=== PATIENT | female | born 1995 | race American Indian/Alaskan Native ===

== ENCOUNTER 2018-04-15 00:54 | Inpatient (IN) | payer MEDICAID ==
[2018-04-15 01:08] VITALS: BMI 28.1
[2018-04-15] MEDS ORDERED: Sodium Chloride 0.9% 1,000 ML IV STA (01:56)
[2018-04-15] MEDS ORDERED: Insulin Regular 1 UNITS/0.01 ML ML SC STA (01:56)
--- NOTE | 2018-04-15 01:59 | ED PDOC ---
Arrival/HPI - General Chief Complaint: Dizziness/Lightheaded Time Seen by Provider: 04/15/18 01:04 Historian: Patient - History of Present Illness Narrative History of Present Illness (Text): 04/15/18 01:56 22 year old female, whose past medical history includes hypertension and IDDM, presents to the emergency department with complaint of dizziness. Patient states she noticed her blood sugar was elevated. Patient informs of noncompliance with medications. Patient states she doesn't have money to pay for medications. Patient states she is suppose to take insulin and Lisinopril. Patient denies any shortness of breath, fevers, chills, or any other complaints. Time/Duration: Prior to Arrival Symptom Course: Unchanged Past Medical History - Provider Review Nursing Documentation Reviewed: Yes - Cardiac Hx Cardiac Disorders: Yes Hx Hypertension: Yes - Pulmonary Hx Respiratory Disorders: Yes Hx Asthma: Yes - Endocrine/Metabolic Hx Endocrine Disorders: Yes Hx Diabetes Mellitus Type 2: Yes - Psychiatric Hx Substance Use: No Family/Social History - Physician Review Nursing Documentation Reviewed: Yes Family/Social History: No Known Family HX Smoking Status: Never Smoked Hx Alcohol Use: No Hx Substance Use: No Allergies/Home Meds Allergies/Adverse Reactions: Allergies Iodinated Contrast- Oral and IV Dye Allergy (Verified 04/15/18 01:08) ANAPHYLAXIS peanut Allergy (Verified 04/15/18 01:08) ANAPHYLAXIS shellfish derived Allergy (Verified 04/15/18 01:08) ANAPHYLAXIS Home Medications: Home Meds Medication Instructions Recorded Confirmed Insulin Glargine, Recombina 20 unit SC HS 04/15/18 04/15/18 [Lantus] Insulin Human Regular [Novolin R] 7 unit SC AC 04/15/18 04/15/18 Review of Systems - Physician Review All systems were reviewed & negative as marked: Yes - Review of Systems Constitutional: absent: Fevers, Night Sweats Respiratory: absent: SOB Cardiovascular: Chest Pain Neurological: Dizziness Physical Exam Vital Signs Reviewed: Yes Vital Signs Temp Pulse Resp BP Pulse Ox 04/15/18 01:08 98.3 F 92 H 18 128/76 100 Temperature: Afebrile Blood Pressure: Normal Pulse: Regular Respiratory Rate: Normal Appearance: Positive for: Well-Appearing, Non-Toxic, Comfortable Pain Distress: None Mental Status: Positive for: Alert and Oriented X 3 Finger Stick Blood Glucose: 456 - Systems Exam Head: Present: Atraumatic, Normocephalic Pupils: Present: PERRL Extroacular Muscles: Present: EOMI Conjunctiva: Present: Normal Mouth: Present: Moist Mucous Membranes Neck: Present: Normal Range of Motion Respiratory/Chest: Present: Clear to Auscultation, Good Air Exchange. No: Respiratory Distress, Accessory Muscle Use Cardiovascular: Present: Regular Rate and Rhythm, Normal S1, S2. No: Murmurs Abdomen: No: Tenderness, Distention, Peritoneal Signs Back: Present: Normal Inspection Upper Extremity: Present: Normal Inspection. No: Cyanosis, Edema Lower Extremity: Present: Normal Inspection. No: Edema Neurological: Present: Speech Normal Skin: Present: Warm, Dry, Normal Color. No: Rashes Psychiatric: Present: Alert, Oriented x 3, Normal Insight, Normal Concentration Medical Decision Making ED Course and Treatment: 04/15/18 02:00 Impression: 22 year old female presents with chest pain and dizziness, status post noncompliance of diabetes and hypertension medications. Plan: -- EKG -- Chest X-ray -- Labs -- Insulin -- Reassess and disposition Prior Visits: Notes and results from previous visits were reviewed. Progress Notes: 04/15/18 02:48 EKG: Ordered, reviewed, and independently interpreted the EKG. Rate :101 BPM Rhythm : Tachycardia Interpretation : Nonspecific T- wave changes. 04/15/18 02:48 Chest X-ray reviewed, shows: No acute process. 04/15/18 04:51 Case discussed with medical office administrator and Dr. Winn, patient will be admitted for observation and control of her blood sugar. Patient will then also be given social worker masters consultation. - RAD Interpretation Radiology Orders: 04/15/18 01:50 CHEST PORTABLE [RAD] Stat - Scribe Statement The provider has reviewed the documentation as recorded by the Nicole Cruz Provider Scribe Attestation: All medical record entries made by the Scribe were at my direction and personally dictated by me. I have reviewed the chart and agree that the record accurately reflects my personal performance of the history, physical exam, medical decision making, and the department course for this patient. I have also personally directed, reviewed, and agree with the discharge instructions and disposition. Disposition/Present on Arrival - Present on Arrival Any Indicators Present on Arrival: No History of DVT/PE: No History of Uncontrolled Diabetes: No Urinary Catheter: No History of Decub. Ulcer: No History Surgical Site Infection Following: None - Disposition Have Diagnosis and Disposition been Completed?: Yes Diagnosis: Uncontrolled diabetes mellitus Disposition: HOSPITALIZED Disposition Time: 04:48 Patient Problems: Current Active Problems Problem Status Onset Uncontrolled diabetes mellitus Acute Condition: STABLE Forms: [employer] (Azeri)
[2018-04-15 03:00] LABS: HEMOGLOBIN 13.2 g/dL (12.0-16.0); MEAN CELL VOLUME 80.5 fl (80.0-105.0); MEAN CORPUSCULAR HEMOGLOBIN 26.6 pg (25.0-35.0); MEAN PLATELET VOLUME 9.2 fl (7.0-11.0); RBC 4.97 10^6/uL (3.5-6.1); RED CELL DISTRIBUTION WIDTH 12.1 % (11.5-14.5); WHITE BLOOD COUNT 10.4 10^3/uL (4.5-11.0)
[2018-04-15 03:04] LABS: INR 1.07; PARTIAL THROMBOPLASTIN TIME 29.9 Seconds (25.1-36.5); PROTHROMBIN TIME 12.2 SECONDS (9.4-12.5)
[2018-04-15 03:23] LABS: TROPONIN I < 0.01 ng/mL
[2018-04-15 03:29] LABS: ALB/GLOB RATIO 1.2 (1.1-1.8); ALBUMIN 4.3 g/dL (3.0-4.8); ALT/SGPT 16 U/L (7-56); AST/SGOT 17 U/L (14-36); BLOOD UREA NITROGEN 7 mg/dL (7-21); CALCIUM 9.5 mg/dL (8.4-10.5); GFR NON-AFRICAN AMERICAN > 60
--- NOTE | 2018-04-15 05:36 | CP.PCM.HP ---
<Srinivas De Los Santos - Last Filed: 04/15/18 06:12> History of Present Illness - History of Present Illness History of Present Illness: Srinivas De Los Santos, PGY1 Hospital H&P This is a 22 year old female with PMH of asthma, DM and HTN presenting to the hospital for uncontrolled glucose after medical non compliance. She states she ran out of her insulin within the past week and has been unable to purchase more due to cost. She states she normally takes 7 units novolog TID and 20 units lantus at bedtime. She states she was diagnosed with DM at the age of 8 and has been on insulin treatment since the age of 13. She admits to feeling dizzy and has a headache. She recently had a URI last week. She denies any other symptoms at this time including CP, SOB, back pain, abdominal pain, urinary complaints, numbness, tingling, swelling and recent travel. 12 point ROS noted here, otherwise unremarkable. In the ED, glucose noted to be 439 with no GAP. She was given 10 units insulin and 2L NS. EKG showed NSR at 101bpm and CXR did not show acute disease. PMD: none PMH: as above SH: denies smoking, drinking and drugs Sx: denies surgeries FH: DM, HTN, heart disease All: IV contrast, seafood, peanuts Meds: insulin, lisinopril, albuterol Present on Admission - Present on Admission Any Indicators Present on Admission: Yes History of Uncontrolled Diabetes: Yes Past Patient History - Past Social History Smoking Status: Never Smoked - CARDIAC Hx Cardiac Disorders: Yes Hx Hypertension: Yes - PULMONARY Hx Respiratory Disorders: Yes Hx Asthma: Yes - ENDOCRINE/METABOLIC Hx Endocrine Disorders: Yes Hx Diabetes Mellitus Type 2: Yes - PSYCHIATRIC Hx Substance Use: No Meds Allergies/Adverse Reactions: Allergies Allergy/AdvReac Type Severity Reaction Status Date / Time Iodinated Contrast- Oral and Allergy ANAPHYLAXIS Verified 04/15/18 01:08 IV Dye peanut Allergy ANAPHYLAXIS Verified 04/15/18 01:08 shellfish derived Allergy ANAPHYLAXIS Verified 04/15/18 01:08 Physical Exam - Constitutional Appears: No Acute Distress - Head Exam Head Exam: ATRAUMATIC, NORMAL INSPECTION - Eye Exam Eye Exam: EOMI Pupil Exam: PERRL - Respiratory Exam Respiratory Exam: Clear to Auscultation Bilateral, NORMAL BREATHING PATTERN. absent: Accessory Muscle Use, Respiratory Distress - Cardiovascular Exam Cardiovascular Exam: REGULAR RHYTHM, +S1, +S2 - GI/Abdominal Exam GI & Abdominal Exam: Normal Bowel Sounds. absent: Distended, Firm, Guarding - Extremities Exam Extremities exam: Positive for: normal inspection. Negative for: calf tender ness - Neurological Exam Neurological exam: Alert, Oriented x3 - Skin Skin Exam: Normal Color, Warm Results - Vital Signs Recent Vital Signs: Last Vital Signs Temp 98.3 F 04/15/18 01:08 Pulse 92 H 04/15/18 01:08 Resp 18 04/15/18 01:08 BP 128/76 04/15/18 01:08 Pulse Ox 100 04/15/18 01:08 - Labs Result Diagrams: 04/15/18 02:45 04/15/18 02:45 Labs: Laboratory Results - last 24 hr 04/15/18 04/15/18 04/15/18 01:06 02:45 02:45 WBC 10.4 RBC 4.97 Hgb 13.2 Hct 40.0 MCV 80.5 MCH 26.6 MCHC 33.0 RDW 12.1 Plt Count 375 MPV 9.2 PT INR APTT Sodium 134 Potassium 3.7 Chloride 96 L Carbon Dioxide 25 Anion Gap 17 BUN 7 Creatinine 0.5 L Est GFR ( Amer) > 60 Est GFR (Non-Af Amer) > 60 POC Glucose (mg/dL) 456 H* Random Glucose 439 H* Calcium 9.5 Total Bilirubin 0.4 AST 17 ALT 16 Alkaline Phosphatase 83 Lactate Dehydrogenase 452 Total Creatine Kinase 46 Troponin I < 0.01 Total Protein 7.7 Albumin 4.3 Globulin 3.4 Albumin/Globulin Ratio 1.2 04/15/18 02:45 WBC RBC Hgb Hct MCV MCH MCHC RDW Plt Count MPV PT 12.2 INR 1.07 APTT 29.9 Sodium Potassium Chloride Carbon Dioxide Anion Gap BUN Creatinine Est GFR ( Amer) Est GFR (Non-Af Amer) POC Glucose (mg/dL) Random Glucose Calcium Total Bilirubin AST ALT Alkaline Phosphatase Lactate Dehydrogenase Total Creatine Kinase Troponin I Total Protein Albumin Globulin Albumin/Globulin Ratio Assessment & Plan - Assessment and Plan (Free Text) Assessment: This is a 22 year old female with PMH of asthma, DM and HTN presenting to the hospital for uncontrolled glucose after medical non compliance. Plan: Uncontrolled Glucose: -Hx of DM with non compliance with insulin -continue home dose of insulin. Per patient, she takes 20 units lantus HS and 7 units humalog TID -A1c pending -lipid panel pending -UA and urine cx pending -TSH, T4 pending -social eval Hx of HTN: -continue lisinopril Hx of athma: -continue albuterol PPX with pepcid and heparin Patient seen and discussed with attending, Dr. Winn <Kartik Winn - Last Filed: 04/15/18 07:19> Results - Vital Signs Recent Vital Signs: Last Vital Signs Temp 98.3 F 04/15/18 01:08 Pulse 69 04/15/18 06:29 Resp 18 04/15/18 06:29 BP 117/68 04/15/18 06:29 Pulse Ox 100 04/15/18 06:29 - Labs Result Diagrams: 04/15/18 02:45 04/15/18 02:45 Labs: Laboratory Results - last 24 hr 04/15/18 04/15/18 04/15/18 01:06 02:45 02:45 WBC 10.4 RBC 4.97 Hgb 13.2 Hct 40.0 MCV 80.5 MCH 26.6 MCHC 33.0 RDW 12.1 Plt Count 375 MPV 9.2 PT INR APTT Sodium 134 Potassium 3.7 Chloride 96 L Carbon Dioxide 25 Anion Gap 17 BUN 7 Creatinine 0.5 L Est GFR ( Amer) > 60 Est GFR (Non-Af Amer) > 60 POC Glucose (mg/dL) 456 H* Random Glucose 439 H* Calcium 9.5 Total Bilirubin 0.4 AST 17 ALT 16 Alkaline Phosphatase 83 Lactate Dehydrogenase 452 Total Creatine Kinase 46 Troponin I < 0.01 Total Protein 7.7 Albumin 4.3 Globulin 3.4 Albumin/Globulin Ratio 1.2 Urine Color Urine Appearance Urine pH Ur Specific [place] Urine Protein Urine Glucose (UA) Urine Ketones Urine Blood Urine Nitrate Urine Bilirubin Urine Urobilinogen Ur Leukocyte Esterase Urine RBC Urine WBC Ur Epithelial Cells Urine Bacteria Urine Other 04/15/18 04/15/18 04/15/18 02:45 06:00 06:25 WBC RBC Hgb Hct MCV MCH MCHC RDW Plt Count MPV PT 12.2 INR 1.07 APTT 29.9 Sodium Potassium Chloride Carbon Dioxide Anion Gap BUN Creatinine Est GFR ( Amer) Est GFR (Non-Af Amer) POC Glucose (mg/dL) 254 H Random Glucose Calcium Total Bilirubin AST ALT Alkaline Phosphatase Lactate Dehydrogenase Total Creatine Kinase Troponin I Total Protein Albumin Globulin Albumin/Globulin Ratio Urine Color Yellow Urine Appearance Clear Urine pH 6.5 Ur Specific [place] 1.010 Urine Protein Negative Urine Glucose (UA) >=1000 Urine Ketones Negative Urine Blood Trace-lysed H Urine Nitrate Negative Urine Bilirubin Negative Urine Urobilinogen 0.2 Ur Leukocyte Esterase Trace H Urine RBC 1 - 3 Urine WBC 2 - 5 Ur Epithelial Cells 3 - 4 Urine Bacteria Few Urine Other [place] Attending/Attestation - Attestation I have personally seen and examined this patient.: Yes I have fully participated in the care of the patient.: Yes I have reviewed all pertinent clinical information: Yes Notes (Text): 04/15/18 07:18 Patient was seen when he was in the ER. Medical record was reviewed. Agree with history, physical examination, assessment and plan.
[2018-04-15] MEDS ORDERED: Dextrose 50% SYRINGE Inj (50 ml) IV PRN (05:56)
[2018-04-15 06:35] LABS: PH,URINE 6.5 (4.7-8.0); URINE BILIRUBIN NEGATIVE (NEGATIVE); URINE BLOOD TRACE-LYSED (NEGATIVE); URINE GLUCOSE (UA) >=1000 mg/dL (NEGATIVE); URINE LEUKOCYTE ESTERASE TRACE Leu/uL (NEGATIVE); URINE PROTEIN NEGATIVE mg/dL (<30 mg/dL); URINE UROBILINOGEN 0.2 E.U./dL (<1 E.U./dL)
[2018-04-15 06:36] LABS: URINE APPEARANCE CLEAR (CLEAR); URINE COLOR YELLOW (YELLOW)
[2018-04-15 06:47] LABS: URINE BACTERIA FEW (NEG)
[2018-04-15 07:22] LABS: BASO # 0.02 K/mm3 (0.0-2.0); BASO % 0.2 % (0.0-3.0); EOS # 0.1 (0.0-0.7); EOS % 1.3 % (1.5-5.0); GRAN % 47.5 % (50.0-68.0); LYMPH # 3.8 (1.2-3.4); LYMPH % 45.4 % (22.0-35.0); MEAN CELL VOLUME 79.9 fl (80.0-105.0); MEAN CORPUSCULAR HEMOGLOBIN 25.7 pg (25.0-35.0); MEAN CORPUSCULAR HGB CONC 32.2 g/dl (31.0-37.0); MONO # 0.5 (0.1-0.6); MONO % 5.6 % (1.0-6.0); RBC 4.32 10^6/uL (3.5-6.1); WHITE BLOOD COUNT 8.4 10^3/uL (4.5-11.0)
[2018-04-15 07:23] LABS: HEMOGLOBIN 11.1 g/dL (12.0-16.0)
[2018-04-15] MEDS: Albuterol 0.083% Inhal Sol (2.5 mg/3 mL) UD INH SCH ×3 (07:23→20:33)
[2018-04-15 07:40] LABS: ALB/GLOB RATIO 1.1 (1.1-1.8); ALBUMIN 3.6 g/dL (3.0-4.8); ALT/SGPT 19 U/L (7-56); AST/SGOT 12 U/L (14-36); BLOOD UREA NITROGEN 6 mg/dL (7-21); CALCIUM 8.7 mg/dL (8.4-10.5); GFR NON-AFRICAN AMERICAN > 60; HDL CHOLESTEROL 45 mg/dL (29-60)
[2018-04-15 07:48] LABS: LDL CHOLESTEROL 85 mg/dL (0-129)
[2018-04-15 07:53] LABS: T4 8.9 ug/dL (5.5-11.0)
[2018-04-15] MEDS: Insulin Lispro 1 UNITS/0.01 ML SC SCH ×3 (08:05→17:33)
[2018-04-15] MEDS: Sodium Chloride 0.9% 1,000 ML IV SCH ×3 (09:40→23:47)
--- NOTE | 2018-04-15 10:17 | RAD ---
HISTORY: pain COMPARISON: No prior. TECHNIQUE: Chest, one view. FINDINGS: Examination limited by habitus and hypoinflation. LUNGS: No focal consolidation. Please note that chest x-ray has limited sensitivity for the detection of pulmonary masses. PLEURA: No significant pleural effusion identified. No definite pneumothorax . CARDIOVASCULAR: The cardiomediastinal silhouette appears within normal limits of size. No significant atherosclerotic calcification present. OSSEOUS STRUCTURES: No acute osseous abnormality identified. VISUALIZED UPPER ABDOMEN: Unremarkable. OTHER FINDINGS: None. IMPRESSION: Hypoinflation.
--- NOTE | 2018-04-15 11:11 | CARD ---
APPROVED REPORT Date of service: 04/15/2018 EKG Measurement Heart [id number] <Conclusion> Sinus tachycardia Nonspecific T wave abnormality
[2018-04-15] MEDS ORDERED: Insulin Detemir 100 units/ml Vial (Levemir) SC SCH (22:00)
[2018-04-16] MEDS: Albuterol 0.083% Inhal Sol (2.5 mg/3 mL) UD INH SCH ×4 (01:54→20:55)
[2018-04-16] MEDS: Insulin Reg-LOW-Coverage SC SCH ×4 (07:14→22:06)
[2018-04-16] MEDS: Insulin Regular 1 UNITS/0.01 ML ML SC SCH ×3 (07:15→17:21)
[2018-04-16 07:49] LABS: BASO # 0.02 K/mm3 (0.0-2.0); BASO % 0.3 % (0.0-3.0); EOS # 0.1 (0.0-0.7); EOS % 2.2 % (1.5-5.0); GRAN # 2.56 (1.4-6.5); GRAN % 43.9 % (50.0-68.0); HEMOGLOBIN 10.7 g/dL (12.0-16.0); LYMPH # 2.7 (1.2-3.4); LYMPH % 46.6 % (22.0-35.0); MEAN CELL VOLUME 81.4 fl (80.0-105.0); MEAN CORPUSCULAR HEMOGLOBIN 25.8 pg (25.0-35.0); MEAN CORPUSCULAR HGB CONC 31.7 g/dl (31.0-37.0); MEAN PLATELET VOLUME 9.3 fl (7.0-11.0); MONO # 0.4 (0.1-0.6); RBC 4.15 10^6/uL (3.5-6.1); WHITE BLOOD COUNT 5.8 10^3/uL (4.5-11.0)
[2018-04-16 08:41] LABS: ALT/SGPT 14 U/L (7-56); AST/SGOT 24 U/L (14-36); BLOOD UREA NITROGEN 11 mg/dL (7-21); CALCIUM 8.3 mg/dL (8.4-10.5); GFR NON-AFRICAN AMERICAN > 60
[2018-04-16] MEDS: Sodium Chloride 0.9% 1,000 ML IV SCH ×3 (10:59→22:08)
--- NOTE | 2018-04-16 15:23 | CP.PCM.PN ---
<Franco Dee - Last Filed: 04/16/18 15:19> Subjective - Date & Time of Evaluation Date of Evaluation: 04/16/18 Time of Evaluation: 15:20 - Subjective Subjective: Internal Medicine Progress Note (Hospitalist's Service) Patient seen and assessed at bedside. No acute events noted overnight. Patient reports that she is having mild intermittent nonradiating substernal chest pain without any alleviating/aggravating factors reported. Patient denies any further complaints at this time including fevers, chills, headache, changes in her vision, palpitations, SOB, abdominal pain, N/V/D/C, changes in urine output, skin changes, or any numbness/tingling/weakness of any extremity. Objective - Vital Signs/Intake and Output Vital Signs (last 24 hours): Temp Pulse Resp BP Pulse Ox 97.6 F 104 H 20 110/63 97 04/16/18 14:00 04/16/18 14:00 04/16/18 14:00 04/16/18 14:00 04/16/18 14:00 - Medications Medications: Current Medications Albuterol Sulfate (Albuterol 0.083% Inhal Elyssa (2.5 Mg/3 Ml) Ud) 2.5 mg INH [id number] [facility] Last Admin: 04/16/18 13:24 Dose: 2.5 mg Dextrose (Dextrose 50% Inj) 0 ml IV STAT PRN; Protocol PRN Reason: Hypoglycemia Protocol Famotidine (Pepcid) 20 mg PO 1000,2200 [facility] Last Admin: 04/16/18 11:25 Dose: 20 mg Heparin Sodium (Porcine) (Heparin) 5,000 units SC Q12 TAYLA; Protocol Last Admin: 04/16/18 11:24 Dose: 5,000 units Sodium Chloride (Sodium Chloride 0.9%) 1,000 mls @ 100 mls/hr IV .Q10H TAYLA Last Admin: 04/16/18 10:59 Dose: 100 mls/hr Dextrose (Dextrose 5% In Water 1000 Ml) 1,000 mls @ 0 mls/hr IV .Q0M PRN; Protocol PRN Reason: Hypoglycemia Protocol Insulin Human NPH (Humulin N) 20 units SC HS TAYLA Insulin Human Regular (Humulin R Low) 0 units SC ACHS [facility]; Protocol Last Admin: 04/16/18 12:10 Dose: Not Given Insulin Human Regular (Humulin R) 8 units SC AC [facility] Last Admin: 04/16/18 11:25 Dose: 8 units Lisinopril (Zestril) 2.5 mg PO DAILY [facility] Last Admin: 04/16/18 11:25 Dose: 2.5 mg Ondansetron HCl (Zofran Inj) 4 mg IVP Q6H PRN PRN Reason: Nausea/Vomiting - Labs Labs: 04/16/18 06:45 04/16/18 06:45 PT 12.2 SECONDS (9.4-12.5) 04/15/18 02:45 INR 1.07 04/15/18 02:45 APTT 29.9 Seconds (25.1-36.5) 04/15/18 02:45 - Constitutional Appears: Non-toxic, No Acute Distress - Head Exam Head Exam: ATRAUMATIC, NORMOCEPHALIC - Eye Exam Eye Exam: EOMI, Normal appearance - ENT Exam ENT Exam: Mucous Membranes Moist - Neck Exam Neck Exam: Full ROM. absent: Lymphadenopathy - Respiratory Exam Respiratory Exam: Clear to Ausculation Bilateral, NORMAL BREATHING PATTERN. absent: Rales, Rhonchi, Wheezes - Cardiovascular Exam Cardiovascular Exam: REGULAR RHYTHM, RRR, +S1, +S2 - GI/Abdominal Exam GI & Abdominal Exam: Soft, Normal Bowel Sounds. absent: Tenderness - Extremities Exam Extremities Exam: Full ROM, Normal Capillary Refill, Normal Inspection. absent: Calf Tenderness, Joint Swelling, Pedal Edema, Tenderness - Neurological Exam Neurological Exam: Alert, Awake, Oriented x3 - Psychiatric Exam Psychiatric exam: Normal Affect, Normal Mood - Skin Skin Exam: Dry, Intact, Warm Assessment and Plan - Assessment and Plan (Free Text) Assessment: 22 year old female with a past medical history significant for asthma, uncontrolled DM2 and HTN who presented with uncontrolled DM2 and hyperglycemia secondary to medication non-compliance. Plan: 1. Uncontrolled DM -A1c noted to be elevated at 15.5 -Glucose found to be elevated at 421 this AM -Started on Insulin Regular 8 units SC AC, Insulin Human NPH 20 units SC HS and SSI-Low ACHS -Continue Accuchecks ACHS -Continue Zofran PRN for N/V -Hypoglycemia protocol as ordered PRN -UA, TSH and free T4 all within normal limits -DM Education and Site Manager referrals pending, all recommendations appreciated -Endocrinology consulted, all recommendations appreciated 2. Chest Pain -Stat troponin pending -EKG pending -Will follow up and monitor 3. History of HTN -Continue Lisinopril 4. History of Asthma -Continue Albuterol 2.5mg INH Q6 GI Prophylaxis: Pepcid DVT Prophylaxis: Heparin Diet: Consistent Carbohydrate Code Status: Full Code Patient seen and case discussed with attending, Dr. Anahi Bran. Franco Dee PGY2 <Anahi Bran R - Last Filed: 04/17/18 18:33> Objective - Vital Signs/Intake and Output Vital Signs (last 24 hours): Temp Pulse Resp BP Pulse Ox 98.1 F 94 H 20 129/88 99 04/17/18 14:00 04/17/18 14:00 04/17/18 14:00 04/17/18 14:00 04/17/18 14:00 - Medications Medications: Current Medications Albuterol Sulfate (Albuterol 0.083% Inhal Elyssa (2.5 Mg/3 Ml) Ud) 2.5 mg INH [id number] PRN PRN Reason: Shortness of Breath Dextrose (Dextrose 50% Inj) 0 ml IV STAT PRN; Protocol PRN Reason: Hypoglycemia Protocol Famotidine (Pepcid) 20 mg PO 1000,2200 TAYLA Last Admin: 04/17/18 10:02 Dose: 20 mg Heparin Sodium (Porcine) (Heparin) 5,000 units SC Q12 TAYLA; Protocol Last Admin: 04/17/18 12:56 Dose: Not Given Sodium Chloride (Sodium Chloride 0.9%) 1,000 mls @ 100 mls/hr IV .Q10H TAYLA Last Admin: 04/17/18 04:54 Dose: Not Given Dextrose (Dextrose 5% In Water 1000 Ml) 1,000 mls @ 0 mls/hr IV .Q0M PRN; Protocol PRN Reason: Hypoglycemia Protocol Insulin Human NPH (Humulin N) 26 units SC HS TAYLA Insulin Human Regular (Humulin R Low) 0 units SC ACHS TAYLA; Protocol Last Admin: 04/17/18 17:33 Dose: 3 units Insulin Human Regular (Humulin R) 10 units SC AC [facility] Last Admin: 04/17/18 17:32 Dose: 10 unit Lisinopril (Zestril) 2.5 mg PO DAILY [facility] Last Admin: 04/17/18 10:02 Dose: 2.5 mg Ondansetron HCl (Zofran Inj) 4 mg IVP Q6H PRN PRN Reason: Nausea/Vomiting Last Admin: 04/16/18 15:54 Dose: 4 mg - Labs Labs: 04/17/18 08:40 04/17/18 08:40 PT 12.2 SECONDS (9.4-12.5) 04/15/18 02:45 INR 1.07 04/15/18 02:45 APTT 29.9 Seconds (25.1-36.5) 04/15/18 02:45 Attending/Attestation - Attestation I have personally seen and examined this patient.: Yes I have fully participated in the care of the patient.: Yes I have reviewed all pertinent clinical information, including history, physical exam and plan: Yes Notes (Text): Patient seen and examined by me with resident at 11:20AM on 04/16/18 with resident. Case including HPI, physical exam, and assessment and plan discussed with resident. Agree with above with following additions/corrections. Patient is a 22-year-old female with past medical history significant for asthma, diabetes, and hypertension that presented to the emergency room with uncontrolled glucose after medication noncompliance. Patient states that she is feeling ok. States she would like diabetic education on what to eat. Patient states she stopped her insulin because she could not afford it. Patient state she is having mild intermittent left sided chest pain that does not radiate and is reproducible with palpation. No palpitations. No abdominal pain. No nausea or vomiting. No headaches, dizziness, or lighthea dedness. No change in vision. No fevers or chills. No dysuria. No diarrhea or constipation. Physical exam: General: Awake and alert lying in bed in no acute distress. HEENT: Normocephalic atraumatic. Extraocular muscles intact. Pupils equal and reactive. No scleral icterus. Oropharynx is pink and moist. No pharyngeal erythema or exudate appreciated. Neck is supple. Cardiovascular: Normal rhythm. Normal S1, S2. No murmurs, rubs, or gallops appreciated Pulmonary: Normal respiratory effort. No rhonchi, rales, or wheezing appreciated. Gastrointestinal: Soft, nondistended. Nontender. Positive bowel sounds all 4 quadrants, no guarding. Musculoskeletal: Moves all extremities, no calf tenderness. No edema appreciated. Central nervous system: AAOx3. CN2-12 grossly intact. Dermatologic: Skin warm and dry. Assessment and plan: Patient is a 22-year-old female with past medical history significant for asthma, diabetes, and hypertension that presented to the emergency room with uncontrolled glucose after medication noncompliance. 1. Diabetes with hyperglycemia. HgbA1C 15.5. Blood sugars still elevated at 421 this AM. Endocrinology following, recommendations appreciated. Continue Humulin N 20 units at bedtime. Continue Humulin R 8 units AC. Continue insulin sliding scale. Continue to monitor accuchecks. in service educator consulted. 2. Chest pain. Likely musculoskeletal. Follow up serial troponins. Monitor for resolution. 3. Hypertension. Continue home lisinopril. 4. History of mild intermittent asthma. Not in acute exacerbation. Continue nebulizer treatments as needed. 5. GI/DVT prophylaxis. Pepcid/heparin Case was discussed in detail with the patient regarding current diagnosis and treatment plan. All questions answered.
--- NOTE | 2018-04-16 16:03 | CON ---
DATE: 04/15/2018 ENDOCRINOLOGY CONSULTATION ROOM: 561 HISTORY OF PRESENT ILLNESS: This is a 22-year-old female with known history of type 1 insulin-dependent diabetes and recent drug omission because of financial constraints and is now being referred for diabetic evaluation and management. PAST MEDICAL HISTORY: History of type 1 insulin-dependent diabetes diagnosed at age 8 and has been on insulin therapy until the present time, history of hypertension and dyslipidemia. FAMILY HISTORY: Positive for diabetes and hypertension. SOCIAL HISTORY: The patient has a supportive family. No known substance use. REVIEW OF SYSTEMS: Admits to generalized body weakness with easy fatigability and tiredness and progressive bouts of dizziness and lightheadedness. Also admits to bifrontal headaches and visual blurring. No chest pains or palpitations or PND. Her oral intake has been variable with nausea and dyspepsia and supervening marked polyuria, nocturia and polydipsia. PHYSICAL EXAMINATION: GENERAL: This is an average build female in no apparent distress. VITAL SIGNS: Blood pressure of 140/80, pulse of 100 beats per minute and regular, temperature 98, respirations 20, height is 5 feet 7 inches, weight is 180 pounds. HEENT: Head normocephalic. Eyes anicteric with pink conjunctivae. Funduscopy not possible at this time. Ears, nose and throat otherwise normal. NECK: Supple. Thyroid gland is normal in size. No carotid bruits or cervical adenopathy. CARDIOPULMONARY: Some adynamic precordium. S1 and S2 is rapid and regular. LUNGS: Clear to auscultation. ABDOMEN: Flat and soft, with positive bowel sounds. EXTREMITIES: No peripheral edema. Pulses are +2 bilaterally. LABORATORY DATA: Her chemistry showed BUN of 6, sodium 137, potassium 3.1, chloride 101, CO2 of 28, glucose 217 and creatinine 0.4. Her hemoglobin A1c is 15.5% which is extremely elevated and indicative of suboptimal metabolic control of her diabetic condition. ASSESSMENT: This is a 22-year-old female with uncontrolled and decompensated type 1 insulin-dependent diabetes with marked hyperglycemic accelerations related to recent drug omission as noted because of the financial constraints and extensive insulin analogues as given. PLAN OF MANAGEMENT: We will switch her over to more affordable conventional insulin vials and detailed orders will be given at this time. We will discontinue the Levemir and the Humalog which are all very expensive insulin analogues, which are beyond the zuñiga range and affordability of the patient. We will change the insulin to Humulin NPH given as 14 units subcutaneously at bedtime daily as given. We will also add regular insulin given as 8 units t.i.d. before meals as ordered. We will modify the coverage scale to obviate hypoglycemia and detailed orders were given. We will follow. Leny Mckinnon MD
[2018-04-16] MEDS ORDERED: Insulin Human NPH 1 UNITS/0.01 ML SC SCH (22:00)
--- NOTE | 2018-04-16 23:33 | PN ---
DATE: 04/16/2018 ENDO FOLLOWUP NOTE LOCATION: In room 561. SUBJECTIVE: This is a 22-year-old female with recent uncontrolled type 1 insulin-dependent diabetes, now being followed closely for metabolic management. Her glycemic levels are fluctuating as noted with glucose values ranging from 270 to 288 mg/dL. Her chemistry showed a BUN of 11, sodium 135, potassium 3.8, chloride 101, CO2 25, glucose 417 and creatinine 0.6. Her glucose levels today have ranged from 211 to 306 mg/dL. So at this time, we will modify once again her basal and bolus insulin regimen. I increased the NPH to 26 units subcu at bedtime daily to start tomorrow. We will titrate incrementally as indicated to optimize metabolic control. We will also continue the low-dose correction scale using regular insulin as given. We will increase her regular insulin to 10 units t.i.d. before meals to start tomorrow morning as ordered. We will obtain serial chemistries and supplement accordingly needed. We will also continue the low-dose correction scale as ordered. We will follow and advise accordingly. Leny Mckinnon MD
[2018-04-17] MEDS: Albuterol 0.083% Inhal Sol (2.5 mg/3 mL) UD INH SCH ×3 (02:34→14:07)
[2018-04-17] MEDS: Sodium Chloride 0.9% 1,000 ML IV SCH (04:54)
[2018-04-17] MEDS: Insulin Regular 1 UNITS/0.01 ML ML SC SCH ×3 (07:57→17:32)
[2018-04-17] MEDS: Insulin Reg-LOW-Coverage SC SCH ×4 (07:57→22:17)
[2018-04-17 08:54] LABS: BASO # 0.01 K/mm3 (0.0-2.0); BASO % 0.2 % (0.0-3.0); EOS # 0.2 (0.0-0.7); EOS % 3.2 % (1.5-5.0); GRAN # 3.35 (1.4-6.5); GRAN % 53.6 % (50.0-68.0); HEMOGLOBIN 11.5 g/dL (12.0-16.0); LYMPH # 2.4 (1.2-3.4); LYMPH % 37.6 % (22.0-35.0); MEAN CELL VOLUME 81.1 fl (80.0-105.0); MEAN CORPUSCULAR HEMOGLOBIN 26.2 pg (25.0-35.0); MEAN CORPUSCULAR HGB CONC 32.3 g/dl (31.0-37.0); MEAN PLATELET VOLUME 10.3 fl (7.0-11.0); MONO # 0.3 (0.1-0.6); MONO % 5.4 % (1.0-6.0); RBC 4.39 10^6/uL (3.5-6.1); RED CELL DISTRIBUTION WIDTH 11.8 % (11.5-14.5); WHITE BLOOD COUNT 6.3 10^3/uL (4.5-11.0)
[2018-04-17 09:18] LABS: ALBUMIN 2.9 g/dL (3.0-4.8); ALT/SGPT 20 U/L (7-56); AST/SGOT 10 U/L (14-36); BLOOD UREA NITROGEN 13 mg/dL (7-21); CALCIUM 8.1 mg/dL (8.4-10.5); GFR NON-AFRICAN AMERICAN > 60
--- NOTE | 2018-04-17 09:43 | CARD ---
APPROVED REPORT Date of service: 04/16/2018 EKG Measurement Heart [id number] <Conclusion> Normal sinus rhythm Nonspecific T wave abnormality Prolonged QTc.
--- NOTE | 2018-04-17 16:24 | CP.PCM.PN ---
<Bart La - Last Filed: 04/17/18 16:24> Subjective - Date & Time of Evaluation Date of Evaluation: 04/17/18 Time of Evaluation: 10:30 - Subjective Subjective: Bart La DO, PGY-1 Hospitalist Progress Note for Dr. Jacob Bran Patient was seen and examined at bedside this AM. She offers no new complaints this AM and states she feels fine and ready to go home. She is unsure whether she will be able to get the insulin she needs and therefore would prefer to wait until tomorrow when her medications can be delivered at bedside before she goes home. Objective - Vital Signs/Intake and Output Vital Signs (last 24 hours): Temp Pulse Resp BP Pulse Ox 98.1 F 94 H 20 129/88 99 04/17/18 14:00 04/17/18 14:00 04/17/18 14:00 04/17/18 14:00 04/17/18 14:00 - Medications Medications: Current Medications Albuterol Sulfate (Albuterol 0.083% Inhal Elyssa (2.5 Mg/3 Ml) Ud) 2.5 mg INH [id number] [facility] Last Admin: 04/17/18 14:07 Dose: 2.5 mg Dextrose (Dextrose 50% Inj) 0 ml IV STAT PRN; Protocol PRN Reason: Hypoglycemia Protocol Famotidine (Pepcid) 20 mg PO 1000,2200 [facility] Last Admin: 04/17/18 10:02 Dose: 20 mg Heparin Sodium (Porcine) (Heparin) 5,000 units SC Q12 [facility]; Protocol Last Admin: 04/17/18 12:56 Dose: Not Given Sodium Chloride (Sodium Chloride 0.9%) 1,000 mls @ 100 mls/hr IV .Q10H [facility] Last Admin: 04/17/18 04:54 Dose: Not Given Dextrose (Dextrose 5% In Water 1000 Ml) 1,000 mls @ 0 mls/hr IV .Q0M PRN; Protocol PRN Reason: Hypoglycemia Protocol Insulin Human NPH (Humulin N) 26 units SC HS [facility] Insulin Human Regular (Humulin R Low) 0 units SC ACHS [facility]; Protocol Last Admin: 04/17/18 12:57 Dose: Not Given Insulin Human Regular (Humulin R) 10 units SC AC [facility] Last Admin: 04/17/18 12:56 Dose: 10 unit Lisinopril (Zestril) 2.5 mg PO DAILY [facility] Last Admin: 04/17/18 10:02 Dose: 2.5 mg Ondansetron HCl (Zofran Inj) 4 mg IVP Q6H PRN PRN Reason: Nausea/Vomiting Last Admin: 04/16/18 15:54 Dose: 4 mg - Labs Labs: 04/17/18 08:40 04/17/18 08:40 PT 12.2 SECONDS (9.4-12.5) 04/15/18 02:45 INR 1.07 04/15/18 02:45 APTT 29.9 Seconds (25.1-36.5) 04/15/18 02:45 - Constitutional Appears: Non-toxic, No Acute Distress - Head Exam Head Exam: ATRAUMATIC, NORMOCEPHALIC - Eye Exam Eye Exam: EOMI, Normal appearance, PERRL - ENT Exam ENT Exam: Mucous Membranes Moist - Neck Exam Neck Exam: Full ROM, Normal Inspection - Respiratory Exam Respiratory Exam: Clear to Ausculation Bilateral, NORMAL BREATHING PATTERN. absent: Chest Wall Tenderness, Decreased Breath Sounds, Rales, Rhonchi, Wheezes, Respiratory Distress - Cardiovascular Exam Cardiovascular Exam: REGULAR RHYTHM, RRR, +S1, +S2. absent: Gallop, Rubs, Murmur - GI/Abdominal Exam GI & Abdominal Exam: Soft, Normal Bowel Sounds. absent: Guarding, Tenderness - Extremities Exam Extremities Exam: Full ROM, Normal Inspection - Back Exam Back Exam: NORMAL INSPECTION - Neurological Exam Neurological Exam: Alert, Awake, Oriented x3 - Psychiatric Exam Psychiatric exam: Normal Affect, Normal Mood - Skin Skin Exam: Dry, Intact, Warm Assessment and Plan - Assessment and Plan (Free Text) Assessment: 22 year old female with PMH of asthma, poorly controlled DM2, and HTN who presented with hyperglycemia 2/2 medication and insulin regimen non-compliance. Plan: 1. Uncontrolled DM2 2/2 medication and insulin regimen non-compliance A1c this visit is 15.5 Glucose has been persistently elevated > 400 Started on Insulin Regular 8 units SC AC, Insulin Human NPH 20 units SC HS and SSI-Low ACHS Continue ISS, POC fingerstick glucose ACHS UA without ketones, TSH and free T4 all within normal limits Endo consulted, recs appreciated 2. Chest Pain Patient complained of CP yesterday No significant EKG changes, no troponin elevation Low suspicion for cardiac etiology May be musculoskeletal 2/2 lying in bed vs muscle strain 3. History of HTN Continue Lisinopril 4. History of Asthma Continue Albuterol 2.5mg INH Q6 DVT/GI PPX: Sc heparin, pepcid Full Code HHD Monitor on med/surg Case and plan reviewed and discussed with my attending Dr. Jacob La, IM Resident PGY-1 Pager: [phone] <Anahi Bran R - Last Filed: 04/17/18 18:36> Objective - Vital Signs/Intake and Output Vital Signs (last 24 hours): Temp Pulse Resp BP Pulse Ox 98.1 F 94 H 20 129/88 99 04/17/18 14:00 04/17/18 14:00 04/17/18 14:00 04/17/18 14:00 04/17/18 14:00 - Medications Medications: Current Medications Albuterol Sulfate (Albuterol 0.083% Inhal Elyssa (2.5 Mg/3 Ml) Ud) 2.5 mg INH [id number] PRN PRN Reason: Shortness of Breath Dextrose (Dextrose 50% Inj) 0 ml IV STAT PRN; Protocol PRN Reason: Hypoglycemia Protocol Famotidine (Pepcid) 20 mg PO 1000,2200 [facility] Last Admin: 04/17/18 10:02 Dose: 20 mg Heparin Sodium (Porcine) (Heparin) 5,000 units SC Q12 [facility]; Protocol Last Admin: 04/17/18 12:56 Dose: Not Given Sodium Chloride (Sodium Chloride 0.9%) 1,000 mls @ 100 mls/hr IV .Q10H [facility] Last Admin: 04/17/18 04:54 Dose: Not Given Dextrose (Dextrose 5% In Water 1000 Ml) 1,000 mls @ 0 mls/hr IV .Q0M PRN; Protocol PRN Reason: Hypoglycemia Protocol Insulin Human NPH (Humulin N) 26 units SC HS [facility] Insulin Human Regular (Humulin R Low) 0 units SC ACHS [facility]; Protocol Last Admin: 04/17/18 17:33 Dose: 3 units Insulin Human Regular (Humulin R) 10 units SC AC [facility] Last Admin: 04/17/18 17:32 Dose: 10 unit Lisinopril (Zestril) 2.5 mg PO DAILY [facility] Last Admin: 04/17/18 10:02 Dose: 2.5 mg Ondansetron HCl (Zofran Inj) 4 mg IVP Q6H PRN PRN Reason: Nausea/Vomiting Last Admin: 04/16/18 15:54 Dose: 4 mg - Labs Labs: 04/17/18 08:40 04/17/18 08:40 PT 12.2 SECONDS (9.4-12.5) 04/15/18 02:45 INR 1.07 04/15/18 02:45 APTT 29.9 Seconds (25.1-36.5) 04/15/18 02:45 Attending/Attestation - Attestation I have personally seen and examined this patient.: Yes I have fully participated in the care of the patient.: Yes I have reviewed all pertinent clinical information, including history, physical exam and plan: Yes Notes (Text): Patient seen and examined by me with resident at 10:20 AM on 04/17/18 with resident. Case including HPI, physical exam, and assessment and plan discussed with resident. Agree with above with following additions/corrections. Patient is a 22-year-old female with past medical history significant for asthma, diabetes, and hypertension that presented to the emergency room with uncontrolled glucose after medication noncompliance. Patient states that she is feels better. Chest pain resolved. Patient states she had 2 episodes of vomiting yesterday afternoon which resolved. No abdominal pain. No current nausea or vomiting. No shortness of breath. No headaches, dizziness, or lightheadedness. No change in vision. No fevers or chills. No dysuria. No diarrhea or constipation. Physical exam: General: Awake and alert lying in bed in no acute distress. HEENT: Normocephalic atraumatic. Extraocular muscles intact. Pupils equal and reactive. No scleral icterus. Oropharynx is pink and moist. No pharyngeal erythema or exudate appreciated. Neck is supple. Cardiovascular: Normal rhythm. Normal S1, S2. No murmurs, rubs, or gallops appreciated Pulmonary: Normal respiratory effort. No rhonchi, rales, or wheezing appreciated. Gastrointestinal: Soft, nondistended. Nontender. Positive bowel sounds all 4 quadrants, no guarding. Musculoskeletal: Moves all extremities, no calf tenderness. No edema appr eciated. Central nervous system: AAOx3. CN2-12 grossly intact. Dermatologic: Skin warm and dry. Assessment and plan: Patient is a 22-year-old female with past medical history significant for asthma, diabetes, and hypertension that presented to the emergency room with uncontrolled glucose after medication noncompliance. 1. Diabetes with hyperglycemia. HgbA1C 15.5. Blood sugars still elevated in the 400s this morning. Endocrinology following, recommendations appreciated. Humulin N increased to 26 units at bedtime. Humulin R increased to 10 units AC. Continue insulin sliding scale. Continue to monitor accuchecks. certified lactation educator consulted. 2. Chest pain. Likely musculoskeletal. Resolved. Serial troponins within normal limits. 3. Hypertension. Continue home lisinopril. 4. History of mild intermittent asthma. Not in acute exacerbation. Continue nebulizer treatments as needed. 5. GI/DVT prophylaxis. Pepcid/heparin Case was discussed in detail with the patient regarding current diagnosis and treatment plan. All questions answered.
[2018-04-17] MEDS ORDERED: Albuterol 0.083% Inhal Sol (2.5 mg/3 mL) UD INH PRN (18:31)
[2018-04-17] MEDS ORDERED: Insulin Human NPH 1 UNITS/0.01 ML SC SCH (22:00)
[2018-04-18 08:03] VITALS: RESP 20
--- NOTE | 2018-04-18 08:37 | PN ---
DATE: 04/17/2018 ENDOCRINOLOGY FOLLOWUP NOTE LOCATION: Room 561. SUBJECTIVE: This is a 21-year-old female with recent uncontrolled type 1 insulin-dependent diabetes, now being followed closely for metabolic management. Her glycemic levels are fluctuating and the latest glucose levels have been reviewed today and are still running in the 400 plus range as noted. Fasting glucose was 387 this morning and most likely insulin scheduled for last night dosing regimen. So, at this time, we will recommend the same dosing combination of NPH given as 26 units subcu at bedtime daily as ordered. We will also recommend the same regular insulin given as 10 units subcu t.i.d. before meals as ordered. We will titrate incrementally as indicated to optimize metabolic control. We will follow. Leny Mckinnon MD [facility] # [id number]
[2018-04-18] MEDS: Insulin Regular 1 UNITS/0.01 ML ML SC SCH ×3 (08:41→17:58)
[2018-04-18] MEDS: Insulin Reg-LOW-Coverage SC SCH ×3 (08:42→17:51)
[2018-04-18 09:05] LABS: BASO # 0.01 K/mm3 (0.0-2.0); BASO % 0.1 % (0.0-3.0); EOS # 0.2 (0.0-0.7); EOS % 2.5 % (1.5-5.0); GRAN # 5.99 (1.4-6.5); HEMOGLOBIN 11.8 g/dL (12.0-16.0); LYMPH # 2.1 (1.2-3.4); LYMPH % 24.2 % (22.0-35.0); MEAN CELL VOLUME 80.4 fl (80.0-105.0); MEAN CORPUSCULAR HEMOGLOBIN 26.3 pg (25.0-35.0); MEAN CORPUSCULAR HGB CONC 32.8 g/dl (31.0-37.0); MEAN PLATELET VOLUME 8.8 fl (7.0-11.0); MONO # 0.5 (0.1-0.6); MONO % 5.2 % (1.0-6.0); RBC 4.48 10^6/uL (3.5-6.1); WHITE BLOOD COUNT 8.8 10^3/uL (4.5-11.0)
[2018-04-18 09:37] LABS: ALBUMIN 2.9 g/dL (3.0-4.8); ALT/SGPT 18 U/L (7-56); AST/SGOT 17 U/L (14-36); BLOOD UREA NITROGEN 11 mg/dL (7-21); CALCIUM 8.6 mg/dL (8.4-10.5); GFR NON-AFRICAN AMERICAN > 60
[2018-04-18] MEDS ORDERED: Pantoprazole 40 mg EC Tab PO ONE (12:19)
[2018-04-18 14:10] VITALS: O2SAT 99
[2018-04-18] MEDS ORDERED: Sodium Chloride 0.9% 1,000 ML IV SCH (15:15)
--- NOTE | 2018-04-18 16:29 | CP.PCM.PN ---
<Munir Mckeon - Last Filed: 04/18/18 17:40> Subjective - Date & Time of Evaluation Date of Evaluation: 04/18/18 Time of Evaluation: 16:21 - Subjective Subjective: Resident Munir Mckeon DO PGY-[address] Spears Pt was seen and examined this morning at bedside. She states that overnight she had 3 bouts of non-bloody, non-billious emesis. She continues to expressing feeling nauseous and states that she had no appetite. She denies the buot of nausea or vomiting happening soon after her last meal. She denies having any related diarrhea. She denies fevers, chills, headache, chest pain, SOB, cough, dysuria or hematuria, but does admit to R and LUQ abdominal pain, worse on the L. She states that she is currently unable to tolerate her diet. Objective - Vital Signs/Intake and Output Vital Signs (last 24 hours): Temp Pulse Resp BP Pulse Ox 98.5 F 100 H 20 133/78 99 04/18/18 14:00 04/18/18 14:00 04/18/18 14:00 04/18/18 14:00 04/18/18 14:00 Intake and Output: 04/18/18 04/18/18 06:59 18:59 Intake Total 200 Balance 200 - Medications Medications: Current Medications Albuterol Sulfate (Albuterol 0.083% Inhal Elyssa (2.5 Mg/3 Ml) Ud) 2.5 mg INH [id number] PRN PRN Reason: Shortness of Breath Dextrose (Dextrose 50% Inj) 0 ml IV STAT PRN; Protocol PRN Reason: Hypoglycemia Protocol Famotidine (Pepcid) 20 mg PO 1000,2200 [facility] Last Admin: 04/18/18 09:09 Dose: 20 mg Heparin Sodium (Porcine) (Heparin) 5,000 units SC Q12 [facility]; Protocol Last Admin: 04/18/18 09:03 Dose: Not Given Dextrose (Dextrose 5% In Water 1000 Ml) 1,000 mls @ 0 mls/hr IV .Q0M PRN; Protocol PRN Reason: Hypoglycemia Protocol Sodium Chloride (Sodium Chloride 0.9%) 1,000 mls @ 100 mls/hr IV .Q10H [facility] Insulin Human NPH (Humulin N) 30 units SC HS [facility]AYLA Insulin Human Regular (Humulin R Low) 0 units SC [facility]; Protocol Last Admin: 04/18/18 12:11 Dose: Not Given Insulin Human Regular (Humulin R) 12 units SC [facility] Lisinopril (Zestril) 2.5 mg PO DAILY [facility] Last Admin: 04/18/18 09:08 Dose: 2.5 mg Metoclopramide HCl (Reglan) 10 mg IVP [facility] Ondansetron HCl (Zofran Tab) 4 mg PO Q8H PRN PRN Reason: Nausea/Vomiting - Labs Labs: 04/18/18 09:00 04/18/18 09:00 PT 12.2 SECONDS (9.4-12.5) 04/15/18 02:45 INR 1.07 04/15/18 02:45 APTT 29.9 Seconds (25.1-36.5) 04/15/18 02:45 - Constitutional Appears: Well, Non-toxic, No Acute Distress - Head Exam Head Exam: ATRAUMATIC, NORMAL INSPECTION, NORMOCEPHALIC - Eye Exam Eye Exam: EOMI, Normal appearance, PERRL - Neck Exam Neck Exam: Full ROM. absent: Lymphadenopathy, Tenderness - Respiratory Exam Respiratory Exam: Clear to Ausculation Bilateral, NORMAL BREATHING PATTERN. absent: Accessory Muscle Use, Decreased Breath Sounds, Rales, Rhonchi, Wheezes - Cardiovascular Exam Cardiovascular Exam: RRR, +S1, +S2. absent: Gallop, Rubs - GI/Abdominal Exam GI & Abdominal Exam: Soft, Tenderness (present in the RUQ and LUQ worse on the L. She admits to tenderness since she had the 3 bouts of emesis. ), Normal Bowel Sounds. absent: Guarding, Rigid - Extremities Exam Extremities Exam: Full ROM, Normal Capillary Refill, Normal Inspection. absent: Calf Tenderness - Back Exam Back Exam: NORMAL INSPECTION. absent: CVA tenderness (L), CVA tenderness (R) - Neurological Exam Neurological Exam: Alert, Awake, Oriented x3 - Psychiatric Exam Psychiatric exam: Normal Affect, Normal Mood - Skin Skin Exam: Dry, Intact, Normal Color, Warm Assessment and Plan - Assessment and Plan (Free Text) Assessment: 22 year old female with PMH of asthma, poorly controlled DM2, and HTN who presented with hyperglycemia 2/2 medication and insulin regimen non-compliance. Had 3 bouts of non-billious, non-bloody vomitus. She still states that she is nauseous and does not have an appetite. Plan: 1. Uncontrolled DM2 likely 2/2 medication and insulin regimen non-compliance - A1c this visit is 15.5 - Glucose has been persistently elevated > 400 - Started on Insulin Regular 8 units SC AC, Insulin Human NPH 20 units SC HS and SSI-Low ACHS - Continue ISS, POC fingerstick glucose ACHS - UA without ketones, TSH and free T4 all within normal limits - Endo consulted, recs appreciated 2. Abdominal pain - could be 2/2 gastroparesis with uncontrolled BS's - Zofran IVP - Reglan 10mg IVP - Protonix 40 - Will continue to monitor pt in AM 3. Chest Pain - resolved - Patient complained of CP yesterday - No significant EKG changes, no troponin elevation - Low suspicion for cardiac etiology - May be musculoskeletal 2/2 lying in bed vs muscle strain 4. History of HTN - Continue Lisinopril 5. History of Asthma - Continue Albuterol 2.5mg INH Q6 6. PPX: DVT/GI Sc heparin, pepcid Full Code HHD Monitor on med/surg <Dora Spears - Last Filed: 04/20/18 18:05> Objective - Vital Signs/Intake and Output Vital Signs (last 24 hours): Temp Pulse Resp BP Pulse Ox 98.3 F 85 20 95/56 L 99 04/19/18 07:43 04/19/18 10:44 04/19/18 07:43 04/19/18 10:44 04/19/18 07:43 - Labs Labs: 04/19/18 10:30 04/19/18 10:30 PT 12.2 SECONDS (9.4-12.5) 04/15/18 02:45 INR 1.07 04/15/18 02:45 APTT 29.9 Seconds (25.1-36.5) 04/15/18 02:45 Attending/Attestation - Attestation I have personally seen and examined this patient.: Yes I have fully participated in the care of the patient.: Yes I have reviewed all pertinent clinical information, including history, physical exam and plan: Yes Notes (Text): 04/20/18 18:02 attending note; Patient seen and examined with resident. Patient is alert and awake. Complaining of nausea and vomiting. Currently on liquid diet. Ambulating in the hallway without difficulty. Patient is a 22-year-old female with past medical history significant for asthma, diabetes, and hypertension that presented to the emergency room with uncontrolled glucose after medication noncompliance. 1. Diabetes with hyperglycemia. HgbA1C 15.5. Blood sugar is improving. Endocrinology evaluation appreciated. Adjust insulin per endocrine. dietary education given. Diabetic nurse education given. 2. Hypertension. Continue home lisinopril. 3. History of mild intermittent asthma. Not in acute exacerbation. Continue nebulizer treatments as needed. 4.nausea or vomiting; possibly diabetic gastroparesis. Continue clear liquid diet. advance as tolerated. GI evaluation requested. Continue IVF. patient recently moved from [place]. Currently applying for insurance. Advised to follow-up with [facility] clinic upon discharge.
--- NOTE | 2018-04-18 19:45 | PN ---
DATE OF CONSULTATION: 04/18/2018 ROOM: 561. This is a 22-year-old female with recent uncontrolled type 1 insulin-dependent diabetes, now being followed closely for metabolic management. Her glycemic levels are fluctuating, but improved, and the latest glucose values have ranged from 83 to 242 and 258 mg/dL. Her chemistry shows a BUN of 11, sodium 133, potassium 3.9, chloride 100, CO2 of 28, glucose 278, and creatinine 0.4. So at this time, we will modify once again her basal and bolus insulin regimen as ordered. We will increase the regular insulin to 12 units subcu t.i.d. before meals to start at dinnertime today as ordered. We will also increase her NPH at bedtime, given as basal insulin, to a higher dose of 30 units subcu at bedtime daily. We will continue the low-dose correction scale using regular insulin as ordered. We will obtain serial chemistries and supplement accordingly as needed. We will follow and advise accordingly and also recommend that she follow with our clinic downstairs for ongoing diabetic and medical followup as an outpatient. Leny Mckinnon MD
[2018-04-18] MEDS ORDERED: Insulin Human NPH 1 UNITS/0.01 ML SC SCH (22:00)
[2018-04-19] MEDS: Insulin Reg-LOW-Coverage SC SCH ×4 (06:10→17:05)
[2018-04-19 07:44] VITALS: TEMP 98.3
[2018-04-19] MEDS: Insulin Regular 1 UNITS/0.01 ML ML SC SCH ×3 (08:14→17:08)
[2018-04-19 10:41] LABS: BASO # 0.01 K/mm3 (0.0-2.0); BASO % 0.2 % (0.0-3.0); EOS # 0.2 (0.0-0.7); EOS % 3.6 % (1.5-5.0); GRAN # 3.7 (1.4-6.5); GRAN % 60.1 % (50.0-68.0); HEMOGLOBIN 11.8 g/dL (12.0-16.0); LYMPH # 1.9 (1.2-3.4); LYMPH % 30.2 % (22.0-35.0); MEAN CELL VOLUME 80.8 fl (80.0-105.0); MEAN CORPUSCULAR HGB CONC 32.2 g/dl (31.0-37.0); MEAN PLATELET VOLUME 9.4 fl (7.0-11.0); MONO # 0.4 (0.1-0.6); MONO % 5.9 % (1.0-6.0); RBC 4.53 10^6/uL (3.5-6.1); RED CELL DISTRIBUTION WIDTH 12.1 % (11.5-14.5); WHITE BLOOD COUNT 6.2 10^3/uL (4.5-11.0)
[2018-04-19 10:45] VITALS: BP 95/56; PULSE 85
[2018-04-19 10:54] LABS: ALBUMIN 3.2 g/dL (3.0-4.8); ALT/SGPT 16 U/L (7-56); AST/SGOT 15 U/L (14-36); BLOOD UREA NITROGEN 10 mg/dL (7-21); CALCIUM 8.6 mg/dL (8.4-10.5); GFR NON-AFRICAN AMERICAN > 60
--- NOTE | 2018-04-19 10:58 | CP.PCM.CON ---
<ToddJluis reesbuffy - Last Filed: 04/19/18 10:51> History of Present Illness - History of Present Illness History of Present Illness: PGY-4 GI Fellow Consult Note The following mostly obtained from chart review and hospital staff as patient declined to answer questions this AM limiting history. Pt is a 22 yo BF with h/o DM1, HTN, Asthma who was admitted on 04/15 for hyperglycemia due to medication non-compliance. GI consulted for nausea/v omiting. During my encounter, patient states that those symptoms have resolved and that she plans to eat breakfast later in the day. Previous episodes have been reported as non-bloody, non-bilious emesis. Pt denies any abd pain, fevers, chills. She reports "normal" bowel movements but doesn't provide further details. Blood sugars have been slowly improving but remain 200-300s over last 48 hrs. Unable to obtain ROS due to patient not cooperating MHx: as above SurgHx: None Meds: insulin, lisinopril, albuterol SocHx: denies smoking, drinking and drugs FamHx: DM, HTN, heart disease All: IV contrast, seafood, peanuts Past Patient History - Past Social History Smoking Status: Never Smoked - CARDIAC Hx Hypertension: Yes - PULMONARY Hx Asthma: Yes - NEUROLOGICAL Hx Dizziness: Yes - ENDOCRINE/METABOLIC Hx Diabetes Mellitus Type 2: Yes - MUSCULOSKELETAL/RHEUMATOLOGICAL Hx Falls: No - PSYCHIATRIC Hx Substance Use: No - SURGICAL HISTORY Hx Surgeries: No Meds Home Medications: Home Medication List Medication Instructions Recorded Confirmed Type RX: Albuterol HFA [Ventolin HFA 90 2 puff IH [id number] PRN 30 Days #2 04/18/18 Rx mcg/actuation (8 g)] inhaler RX: Lisinopril [Zestril] 2.5 mg PO DAILY 30 Days #30 tab 04/18/18 Rx Insulin Human Isophane (NPH) 30 unit SC HS 30 Days #840 unit 04/19/18 Rx [Novolin N] Metoclopramide HCl [Reglan] 5 mg PO AC PRN #12 tablet 04/19/18 Rx Metoclopramide [Reglan] 5 mg PO ACHS PRN #6 tab 04/19/18 Rx RX: Insulin Lispro [Humalog 12 unit SQ AC 30 Days #3 insuln.pen 04/19/18 Rx Kwikpen U-200] Allergies/Adverse Reactions: Allergies Allergy/AdvReac Type Severity Reaction Status Date / Time FISH Allergy RASH Verified 04/15/18 12:47 Iodinated Contrast- Oral and Allergy ANAPHYLAXIS Verified 04/15/18 01:08 IV Dye peanut Allergy ANAPHYLAXIS Verified 04/15/18 01:08 shellfish derived Allergy ANAPHYLAXIS Verified 04/15/18 01:08 - Medications Medications: Current Medications Albuterol Sulfate (Albuterol 0.083% Inhal Elyssa (2.5 Mg/3 Ml) Ud) 2.5 mg INH [id number] PRN PRN Reason: Shortness of Breath Dextrose (Dextrose 50% Inj) 0 ml IV STAT PRN; Protocol PRN Reason: Hypoglycemia Protocol Famotidine (Pepcid) 20 mg PO 1000,2200 [facility] Last Admin: 04/19/18 10:45 Dose: 20 mg Heparin Sodium (Porcine) (Heparin) 5,000 units SC Q12 [facility]; Protocol Last Admin: 04/19/18 10:42 Dose: Not Given Dextrose (Dextrose 5% In Water 1000 Ml) 1,000 mls @ 0 mls/hr IV .Q0M PRN; Protocol PRN Reason: Hypoglycemia Protocol Sodium Chloride (Sodium Chloride 0.9%) 1,000 mls @ 100 mls/hr IV .Q10H [facility] Last Admin: 04/18/18 18:47 Dose: Not Given Insulin Human NPH (Humulin N) 30 units SC HS [facility] Last Admin: 04/18/18 23:13 Dose: 30 units Insulin Human Regular (Humulin R Low) 0 units SC ACHS [facility]; Protocol Last Admin: 04/19/18 07:17 Dose: Not Given Insulin Human Regular (Humulin R) 12 units SC AC [facility] Last Admin: 04/19/18 08:14 Dose: 12 units Lisinopril (Zestril) 2.5 mg PO DAILY [facility] Last Admin: 04/19/18 10:44 Dose: Not Given Metoclopramide HCl (Reglan) 10 mg PO 0600,1130,1630,2200 [facility] Last Admin: 04/19/18 10:45 Dose: 10 mg Ondansetron HCl (Zofran Tab) 4 mg PO Q8H PRN PRN Reason: Nausea/Vomiting Last Admin: 04/18/18 17:58 Dose: 4 mg Physical Exam - Constitutional Appears: No Acute Distress, Other (sleeping in bed, awoke to voice) - Head Exam Head Exam: ATRAUMATIC, NORMAL INSPECTION - Eye Exam Eye Exam: EOMI. absent: Conjunctival injection, Scleral icterus - ENT Exam ENT Exam: Mucous Membranes Moist, Normal External Ear Exam. absent: Mucous Membranes Dry - Respiratory Exam Respiratory Exam: Clear to Auscultation Bilateral, NORMAL BREATHING PATTERN. absent: Accessory Muscle Use, Respiratory Distress - Cardiovascular Exam Cardiovascular Exam: REGULAR RHYTHM, RRR - GI/Abdominal Exam GI & Abdominal Exam: Normal Bowel Sounds, Soft. absent: Bruit, Diminished Bowel Sounds, Distended, Firm, Guarding, Hernia, Mass, Organomegaly, Pulsatile Mass, Rebound, Rigid, Tenderness - Rectal Exam Rectal Exam: Deferred - Extremities Exam Extremities exam: Positive for: normal inspection. Negative for: pedal edema - Neurological Exam Neurological exam: CN II-XII Intact Additional comments: tired, awoke to voice - Skin Skin Exam: Dry, Normal Color Results - Vital Signs Recent Vital Signs: Last Vital Signs Temp 98.3 F 04/19/18 07:43 Pulse 85 04/19/18 10:44 Resp 20 04/19/18 07:43 BP 95/56 L 04/19/18 10:44 Pulse Ox 99 04/19/18 07:43 - Labs Result Diagrams: 04/19/18 10:30 04/18/18 09:00 Labs: Laboratory Results - last 24 hr 04/17/18 04/17/18 04/17/18 06:52 11:26 16:07 WBC RBC Hgb Hct MCV MCH MCHC RDW Plt Count MPV Gran % Lymph % (Auto) Bath % (Auto) Eos % (Auto) Baso % (Auto) Gran # Lymph # (Auto) Bath # (Auto) Eos # (Auto) Baso # (Auto) POC Glucose (mg/dL) 389 H 246 H 364 H 04/17/18 04/18/18 04/18/18 20:40 06:41 11:10 WBC RBC Hgb Hct MCV MCH MCHC RDW Plt Count MPV Gran % Lymph % (Auto) Bath % (Auto) Eos % (Auto) Baso % (Auto) Gran # Lymph # (Auto) Bath # (Auto) Eos # (Auto) Baso # (Auto) POC Glucose (mg/dL) 83 242 H 258 H 04/18/18 04/18/18 04/19/18 16:08 21:10 06:40 WBC RBC Hgb Hct MCV MCH MCHC RDW Plt Count MPV Gran % Lymph % (Auto) Bath % (Auto) Eos % (Auto) Baso % (Auto) Gran # Lymph # (Auto) Bath # (Auto) Eos # (Auto) Baso # (Auto) POC Glucose (mg/dL) 206 H 283 H 222 H 04/19/18 10:30 WBC 6.2 RBC 4.53 Hgb 11.8 L Hct 36.6 MCV 80.8 MCH 26.0 MCHC 32.2 RDW 12.1 Plt Count 339 MPV 9.4 Gran % 60.1 Lymph % (Auto) 30.2 Bath % (Auto) 5.9 Eos % (Auto) 3.6 Baso % (Auto) 0.2 Gran # 3.70 Lymph # (Auto) 1.9 Bath # (Auto) 0.4 Eos # (Auto) 0.2 Baso # (Auto) 0.01 POC Glucose (mg/dL) Assessment & Plan - Assessment and Plan (Free Text) Assessment: 22 yo BF with DM1 admitted for hyperglycemia, GI consulted for N/V. # Nausea/Vomiting: Acute. Non-bloody, non-bilious. Suspect related to hypergl ycemia with possible underlying gastroparesis flare. Symptoms already improving this AM with BG control and patient requesting diet. Plan: - Car controlled, low fiber, small frequent meals - Strict blood glucose control to <200 - Symptomatic treatment PRN - Consider outpatient GI evaluation should symptoms persist despite optimal blood glucose control Thank you for the consult. Will sign off. Please call if questions. Pt discussed with Dr. Fox. See attestation for further recs/changes. <Thomas Fox Y - Last Filed: 04/19/18 12:16> Meds - Medications Medications: Current Medications Albuterol Sulfate (Albuterol 0.083% Inhal Elyssa (2.5 Mg/3 Ml) Ud) 2.5 mg INH [id number] PRN PRN Reason: Shortness of Breath Dextrose (Dextrose 50% Inj) 0 ml IV STAT PRN; Protocol PRN Reason: Hypoglycemia Protocol Famotidine (Pepcid) 20 mg PO 1000,2200 [facility] Last Admin: 04/19/18 10:45 Dose: 20 mg Heparin Sodium (Porcine) (Heparin) 5,000 units SC Q12 [facility]; Protocol Last Admin: 04/19/18 10:42 Dose: Not Given Dextrose (Dextrose 5% In Water 1000 Ml) 1,000 mls @ 0 mls/hr IV .Q0M PRN; Protocol PRN Reason: Hypoglycemia Protocol Sodium Chloride (Sodium Chloride 0.9%) 1,000 mls @ 100 mls/hr IV .Q10H [facility] Last Admin: 04/18/18 18:47 Dose: Not Given Insulin Human NPH (Humulin N) 30 units SC HS [facility] Last Admin: 04/18/18 23:13 Dose: 30 units Insulin Human Regular (Humulin R Low) 0 units SC ACHS [facility]; Protocol Last Admin: 04/19/18 12:00 Dose: Not Given Insulin Human Regular (Humulin R) 12 units SC AC [facility] Last Admin: 04/19/18 12:00 Dose: Not Given Lisinopril (Zestril) 2.5 mg PO DAILY [facility] Last Admin: 04/19/18 10:44 Dose: Not Given Metoclopramide HCl (Reglan) 10 mg PO 0600,1130,1630,2200 [facility] Last Admin: 04/19/18 10:45 Dose: 10 mg Ondansetron HCl (Zofran Tab) 4 mg PO Q8H PRN PRN Reason: Nausea/Vomiting Last Admin: 04/18/18 17:58 Dose: 4 mg Results - Vital Signs Recent Vital Signs: Last Vital Signs Temp 98.3 F 04/19/18 07:43 Pulse 85 04/19/18 10:44 Resp 20 04/19/18 07:43 BP 95/56 L 04/19/18 10:44 Pulse Ox 99 04/19/18 07:43 - Labs Result Diagrams: 04/19/18 10:30 04/19/18 10:30 Labs: Laboratory Results - last 24 hr 04/18/18 04/18/18 04/19/18 16:08 21:10 06:40 WBC RBC Hgb Hct MCV MCH MCHC RDW Plt Count MPV Gran % Lymph % (Auto) Bath % (Auto) Eos % (Auto) Baso % (Auto) Gran # Lymph # (Auto) Bath # (Auto) Eos # (Auto) Baso # (Auto) Sodium Potassium Chloride Carbon Dioxide Anion Gap BUN Creatinine Est GFR ( Amer) Est GFR (Non-Af Amer) POC Glucose (mg/dL) 206 H 283 H 222 H Random Glucose Calcium Total Bilirubin AST ALT Alkaline Phosphatase Total Protein Albumin Globulin Albumin/Globulin Ratio 04/19/18 04/19/18 04/19/18 10:30 10:30 10:43 WBC 6.2 RBC 4.53 Hgb 11.8 L Hct 36.6 MCV 80.8 MCH 26.0 MCHC 32.2 RDW 12.1 Plt Count 339 MPV 9.4 Gran % 60.1 Lymph % (Auto) 30.2 Bath % (Auto) 5.9 Eos % (Auto) 3.6 Baso % (Auto) 0.2 Gran # 3.70 Lymph # (Auto) 1.9 Bath # (Auto) 0.4 Eos # (Auto) 0.2 Baso # (Auto) 0.01 Sodium 136 Potassium 3.7 Chloride 102 Carbon Dioxide 27 Anion Gap 11 BUN 10 Creatinine 0.4 L Est GFR ( Amer) > 60 Est GFR (Non-Af Amer) > 60 POC Glucose (mg/dL) 113 H Random Glucose 176 H Calcium 8.6 Total Bilirubin 0.2 AST 15 ALT 16 Alkaline Phosphatase 55 Total Protein 6.2 Albumin 3.2 Globulin 3.0 Albumin/Globulin Ratio 1.0 L Attending/Attestation - Attestation I have fully participated in the care of the patient.: Yes I have reviewed all pertinent clinical information: Yes Notes (Text): 04/19/18 12:15 Patient with hyperglycemia and abdominal pain, symptoms suggestive of gastroparesis. - Advance diet slowly as tolerated, small frequent meals throughout the day - Maintain strict glycemic control - No planned GI intervention, will sign off case. Suggest additional outpatient follow up, please reconsult as necessary, thank you.
--- NOTE | 2018-04-19 17:45 | CP.PCM.DIS ---
<Munir Mckeon - Last Filed: 04/19/18 17:42> Provider - Provider Date of Admission: 04/16/18 14:40 Attending physician: Dora Spears MD Time Spent in preparation of Discharge (in minutes): 45 Diagnosis - Discharge Diagnosis (1) Gastroparesis Status: Acute (2) Uncontrolled diabetes mellitus Status: Acute Hospital Course - Lab Results Lab Results: Micro Results 04/15/18 06:25 Urine,Clean Catch Urine Culture - Final MULTIPLE SPECIES. SUGGEST REPEAT SPECIMEN. Most Recent Lab Values WBC 6.2 10^3/uL (4.5-11.0) 04/19/18 10:30 RBC 4.53 10^6/uL (3.5-6.1) 04/19/18 10:30 Hgb 11.8 g/dL (12.0-16.0) L 04/19/18 10:30 Hct 36.6 % (36.0-48.0) 04/19/18 10:30 MCV 80.8 fl (80.0-105.0) 04/19/18 10:30 MCH 26.0 pg (25.0-35.0) 04/19/18 10:30 MCHC 32.2 g/dl (31.0-37.0) 04/19/18 10:30 RDW 12.1 % (11.5-14.5) 04/19/18 10:30 Plt Count 339 10^3/uL (120.0-450.0) 04/19/18 10:30 MPV 9.4 fl (7.0-11.0) 04/19/18 10:30 Gran % 60.1 % (50.0-68.0) 04/19/18 10:30 Lymph % (Auto) 30.2 % (22.0-35.0) 04/19/18 10:30 [place]ajas % (Auto) 5.9 % (1.0-6.0) 04/19/18 10:30 Eos % (Auto) 3.6 % (1.5-5.0) 04/19/18 10:30 Baso % (Auto) 0.2 % (0.0-3.0) 04/19/18 10:30 Gran # 3.70 (1.4-6.5) 04/19/18 10:30 Lymph # (Auto) 1.9 (1.2-3.4) 04/19/18 10:30 [place] # (Auto) 0.4 (0.1-0.6) 04/19/18 10:30 Eos # (Auto) 0.2 (0.0-0.7) 04/19/18 10:30 Baso # (Auto) 0.01 K/mm3 (0.0-2.0) 04/19/18 10:30 PT 12.2 SECONDS (9.4-12.5) 04/15/18 02:45 INR 1.07 04/15/18 02:45 APTT 29.9 Seconds (25.1-36.5) 04/15/18 02:45 Sodium 136 mmol/L (132-148) 04/19/18 10:30 Potassium 3.7 mmol/L (3.6-5.0) 04/19/18 10:30 Chloride 102 mmol/L (98-107) 04/19/18 10:30 Carbon Dioxide 27 mmol/L (21-33) 04/19/18 10:30 Anion Gap 11 (10-20) 04/19/18 10:30 BUN 10 mg/dL (7-21) 04/19/18 10:30 Creatinine 0.4 mg/dl (0.7-1.2) L 04/19/18 10:30 Est GFR ( Amer) > 60 04/19/18 10:30 Est GFR (Non-Af Amer) > 60 04/19/18 10:30 POC Glucose (mg/dL) 286 mg/dL (65-110) H 04/19/18 16:52 Random Glucose 176 mg/dL (70-110) H 04/19/18 10:30 Hemoglobin A1c 15.5 % (4.2-6.5) H 04/15/18 06:50 Calcium 8.6 mg/dL (8.4-10.5) 04/19/18 10:30 Phosphorus 3.4 mg/dL (2.5-4.5) 04/15/18 06:50 Magnesium 1.8 mg/dL (1.7-2.2) 04/15/18 06:50 Total Bilirubin 0.2 mg/dL (0.2-1.3) 04/19/18 10:30 AST 15 U/L (14-36) 04/19/18 10:30 ALT 16 U/L (7-56) 04/19/18 10:30 Alkaline Phosphatase 55 U/L (38-126) 04/19/18 10:30 Lactate Dehydrogenase 452 U/L (333-699) 04/15/18 02:45 Total Creatine Kinase 46 U/L (35-230) 04/15/18 02:45 Troponin I < 0.01 ng/mL 04/16/18 07:00 Total Protein 6.2 g/dL (5.8-8.3) 04/19/18 10:30 Albumin 3.2 g/dL (3.0-4.8) 04/19/18 10:30 Globulin 3.0 gm/dL 04/19/18 10:30 Albumin/Globulin Ratio 1.0 (1.1-1.8) L 04/19/18 10:30 Triglycerides 79 mg/dL (35-160) 04/15/18 06:50 Cholesterol 148 mg/dL (130-200) 04/15/18 06:50 LDL Cholesterol Direct 85 mg/dL (0-129) 04/15/18 06:50 HDL Cholesterol 45 mg/dL (29-60) 04/15/18 06:50 Thyroxine (T4) 8.9 ug/dL (5.5-11.0) 04/15/18 06:50 TSH 3rd Generation 2.54 mIU/mL (0.46-4.68) 04/15/18 06:50 Urine Color Yellow (YELLOW) 04/15/18 06:25 Urine Appearance Clear (CLEAR) 04/15/18 06:25 Urine pH 6.5 (4.7-8.0) 04/15/18 06:25 Ur Specific [place] 1.010 (1.005-1.035) 04/15/18 06:25 Urine Protein Negative mg/dL (<30 mg/dL) 04/15/18 06:25 Urine Glucose (UA) >=1000 mg/dL (NEGATIVE) 04/15/18 06:25 Urine Ketones Negative mg/dL (NEGATIVE) 04/15/18 06:25 Urine Blood Trace-lysed (NEGATIVE) H 04/15/18 06:25 Urine Nitrate Negative (NEGATIVE) 04/15/18 06:25 Urine Bilirubin Negative (NEGATIVE) 04/15/18 06:25 Urine Urobilinogen 0.2 E.U./dL (<1 E.U./dL) 04/15/18 06:25 Ur Leukocyte Esterase Trace Wes/uL (NEGATIVE) H 04/15/18 06:25 Urine RBC 1 - 3 /hpf (0-2) 04/15/18 06:25 Urine WBC 2 - 5 /hpf (0-6) 04/15/18 06:25 Ur Epithelial Cells 3 - 4 /hpf (0-5) 04/15/18 06:25 Urine Bacteria Few (NEG) 04/15/18 06:25 Urine Other Uyeast 04/15/18 06:25 - Hospital Course Hospital Course: Upon admission Patient is a 22 year old female with a past medical history of asthma, DM, and HTN who presented to the [facility] Emergency Department (ED) on 04/15 for uncontrolled glucose secondary to medication non-compliance. Patient states that she within the past week she ran out of insulin and has not been able to purchase more due to cost. Patient states that she has been on insulin treatment for DM since the age of 13. On ROS, patient admitted to dizziness and headache. Patient denied chest pain, shortness of breath, back pain, abdominal pain, urinary complaints, numbness, tingling, swelling, and recent travel. Patient stated that home medications included Lisinopril, Novolin, Lantus, and albuterol. In ED, glucose was found to be 439 with no anion gap. Patient received 10 units of insulin and 2L NS. Hospital course Home medications were continued. Pepcid and heparin were started for GI/DVT prophylaxis. Endocrinology was consulted to optimize glycemic control. Patient reported several episodes of vomiting on third day of hospital stay. Zofran and Metoclopramide were started for nausea/vomiting and the patient responded well. GI was consulted for suspected gastroparesis but pts symptoms abated before GI could see the pt. She tolerated a regular diet and was then cleared for d/c. Case management was consulted for diabetic education and acquisition of diabetic medications and supplies. For a detailed record of hospital course, please refer to medical record. Upon discharge Patient was instructed to establish care with a primary care physician. Patient was educated about glycemic control. These instructions were explained to the patient, and the patient understood and agreed with the plan to be d/c'ed home. Discharge Exam - Head Exam Head Exam: ATRAUMATIC, NORMAL INSPECTION, NORMOCEPHALIC - Eye Exam Eye Exam: EOMI, Normal appearance, PERRL - ENT Exam ENT Exam: Mucous Membranes Moist - Respiratory Exam Respiratory Exam: NORMAL BREATHING PATTERN, UNREMARKABLE. absent: Accessory Muscle Use, Decreased Breath Sounds, Rales, Rhonchi, Wheezes, Respiratory Distress, Stridor - Cardiovascular Exam Cardiovascular Exam: RRR, +S1, +S2. absent: Gallop, Rubs - GI/Abdominal Exam GI & Abdominal Exam: Normal Bowel Sounds, Soft, Unremarkable. absent: Guarding, Rigid, Tenderness - Extremities Exam Extremities exam: normal capillary refill, normal inspection, pedal pulses present - Back Exam Back exam: NORMAL INSPECTION. absent: CVA tenderness (L), CVA tenderness (R) - Neurological Exam Neurological exam: Alert, Normal Gait, Oriented x3 - Psychiatric Exam Psychiatric exam: Normal Affect, Normal Mood - Skin Skin Exam: Dry, Intact, Normal Color, Warm Discharge Plan - Discharge Medications Prescriptions: Albuterol HFA [Ventolin HFA 90 mcg/actuation (8 g)] 2 puff IH [id number] PRN 30 Days #2 inhaler PRN Reason: Wheezing Insulin Human Isophane (NPH) [Novolin N] 30 unit SC HS 30 Days #840 unit Insulin Lispro [Humalog Kwikpen U-200] 12 unit SQ AC 30 Days #3 insuln.pen Lisinopril [Zestril] 2.5 mg PO DAILY 30 Days #30 tab Metoclopramide [Reglan] 5 mg PO ACHS PRN #6 tab PRN Reason: Abdominal Pain Metoclopramide HCl [Reglan] 5 mg PO AC PRN #12 tablet PRN Reason: Nausea/Vomiting - Follow Up Plan Condition: STABLE Disposition: HOME/ ROUTINE Instructions: Carbohydrate Counting Diet, Diabetes Diet , Gastroparesis (Delayed Gastric Emptying) (DC), Diabetic Meal Planning , Diabetes and Diet Additional Instructions: Follow up with [facility] on May 06, 3:30 PM for your DM, gastroparesis management. OR f/u with your PMD within 1 week. Take Reglan as needed for nausea before meals. Take long acting insulin 20 units at bedtime. Take short acting insulin 12 units with meals. Take your home meds Lisinopril. Take albuterol inhaler as needed. Keep a detailed account of your blood sugar and show it to your primary care doctor and your industrial engineering technician, Dr Mckinnon. Follow up with Dr Mckinnon, endocrinology doctor, for good control of your diabetes. Call [phone] to make an appointment. Your work note is given from 04/15 to 04/19. You can go back to work on 2017. [place] [facility] with [employer] Sanjuanita Mejia at Return to ED if any symptoms return. Referrals: [facility] [Outside] Leny Mckinnon MD [Medical Doctor] - <Dora Spears - Last Filed: 04/20/18 18:09> Provider - Provider Date of Admission: 04/16/18 14:40 Attending physician: Dora Spears MD Hospital Course - Lab Results Lab Results: Micro Results 04/15/18 06:25 Urine,Clean Catch Urine Culture - Final MULTIPLE SPECIES. SUGGEST REPEAT SPECIMEN. Most Recent Lab Values WBC 6.2 10^3/uL (4.5-11.0) 04/19/18 10:30 RBC 4.53 10^6/uL (3.5-6.1) 04/19/18 10:30 Hgb 11.8 g/dL (12.0-16.0) L 04/19/18 10:30 Hct 36.6 % (36.0-48.0) 04/19/18 10:30 MCV 80.8 fl (80.0-105.0) 04/19/18 10:30 MCH 26.0 pg (25.0-35.0) 04/19/18 10:30 MCHC 32.2 g/dl (31.0-37.0) 04/19/18 10:30 RDW 12.1 % (11.5-14.5) 04/19/18 10:30 Plt Count 339 10^3/uL (120.0-450.0) 04/19/18 10:30 MPV 9.4 fl (7.0-11.0) 04/19/18 10:30 Gran % 60.1 % (50.0-68.0) 04/19/18 10:30 Lymph % (Auto) 30.2 % (22.0-35.0) 04/19/18 10:30 [place] % (Auto) 5.9 % (1.0-6.0) 04/19/18 10:30 Eos % (Auto) 3.6 % (1.5-5.0) 04/19/18 10:30 Baso % (Auto) 0.2 % (0.0-3.0) 04/19/18 10:30 Gran # 3.70 (1.4-6.5) 04/19/18 10:30 Lymph # (Auto) 1.9 (1.2-3.4) 04/19/18 10:30 [place] # (Auto) 0.4 (0.1-0.6) 04/19/18 10:30 Eos # (Auto) 0.2 (0.0-0.7) 04/19/18 10:30 Baso # (Auto) 0.01 K/mm3 (0.0-2.0) 04/19/18 10:30 PT 12.2 SECONDS (9.4-12.5) 04/15/18 02:45 INR 1.07 04/15/18 02:45 APTT 29.9 Seconds (25.1-36.5) 04/15/18 02:45 Sodium 136 mmol/L (132-148) 04/19/18 10:30 Potassium 3.7 mmol/L (3.6-5.0) 04/19/18 10:30 Chloride 102 mmol/L (98-107) 04/19/18 10:30 Carbon Dioxide 27 mmol/L (21-33) 04/19/18 10:30 Anion Gap 11 (10-20) 04/19/18 10:30 BUN 10 mg/dL (7-21) 04/19/18 10:30 Creatinine 0.4 mg/dl (0.7-1.2) L 04/19/18 10:30 Est GFR ( Amer) > 60 04/19/18 10:30 Est GFR (Non-Af Amer) > 60 04/19/18 10:30 POC Glucose (mg/dL) 286 mg/dL (65-110) H 04/19/18 16:52 Random Glucose 176 mg/dL (70-110) H 04/19/18 10:30 Hemoglobin A1c 15.5 % (4.2-6.5) H 04/15/18 06:50 Calcium 8.6 mg/dL (8.4-10.5) 04/19/18 10:30 Phosphorus 3.4 mg/dL (2.5-4.5) 04/15/18 06:50 Magnesium 1.8 mg/dL (1.7-2.2) 04/15/18 06:50 Total Bilirubin 0.2 mg/dL (0.2-1.3) 04/19/18 10:30 AST 15 U/L (14-36) 04/19/18 10:30 ALT 16 U/L (7-56) 04/19/18 10:30 Alkaline Phosphatase 55 U/L (38-126) 04/19/18 10:30 Lactate Dehydrogenase 452 U/L (333-699) 04/15/18 02:45 Total Creatine Kinase 46 U/L (35-230) 04/15/18 02:45 Troponin I < 0.01 ng/mL 04/16/18 07:00 Total Protein 6.2 g/dL (5.8-8.3) 04/19/18 10:30 Albumin 3.2 g/dL (3.0-4.8) 04/19/18 10:30 Globulin 3.0 gm/dL 04/19/18 10:30 Albumin/Globulin Ratio 1.0 (1.1-1.8) L 04/19/18 10:30 Triglycerides 79 mg/dL (35-160) 04/15/18 06:50 Cholesterol 148 mg/dL (130-200) 04/15/18 06:50 LDL Cholesterol Direct 85 mg/dL (0-129) 04/15/18 06:50 HDL Cholesterol 45 mg/dL (29-60) 04/15/18 06:50 Thyroxine (T4) 8.9 ug/dL (5.5-11.0) 04/15/18 06:50 TSH 3rd Generation 2.54 mIU/mL (0.46-4.68) 04/15/18 06:50 Urine Color Yellow (YELLOW) 04/15/18 06:25 Urine Appearance Clear (CLEAR) 04/15/18 06:25 Urine pH 6.5 (4.7-8.0) 04/15/18 06:25 Ur Specific [place] 1.010 (1.005-1.035) 04/15/18 06:25 Urine Protein Negative mg/dL (<30 mg/dL) 04/15/18 06:25 Urine Glucose (UA) >=1000 mg/dL (NEGATIVE) 04/15/18 06:25 Urine Ketones Negative mg/dL (NEGATIVE) 04/15/18 06:25 Urine Blood Trace-lysed (NEGATIVE) H 04/15/18 06:25 Urine Nitrate Negative (NEGATIVE) 04/15/18 06:25 Urine Bilirubin Negative (NEGATIVE) 04/15/18 06:25 Urine Urobilinogen 0.2 E.U./dL (<1 E.U./dL) 04/15/18 06:25 Ur Leukocyte Esterase Trace Wes/uL (NEGATIVE) H 04/15/18 06:25 Urine RBC 1 - 3 /hpf (0-2) 04/15/18 06:25 Urine WBC 2 - 5 /hpf (0-6) 04/15/18 06:25 Ur Epithelial Cells 3 - 4 /hpf (0-5) 04/15/18 06:25 Urine Bacteria Few (NEG) 04/15/18 06:25 Urine Other Uyeast 04/15/18 06:25 Attending/Attestation - Attestation I have personally seen and examined this patient.: Yes I have fully participated in the care of the patient.: Yes I have reviewed all pertinent clinical information, including history, physical exam and plan: Yes Notes (Text): 04/20/18 18:05 attending note; Patient seen and examined with resident. Patient is alert and awake. denies any nausea, vomiting. Tolerating liquid diet. Advanced to regular diet today. Patient is a 22-year-old female with past medical history significant for asthma, diabetes, and hypertension that presented to the emergency room with uncontrolled glucose after medication noncompliance. 1. Diabetes with hyperglycemia. HgbA1C 15.5. Due to non compliance. Blood sugar is improving. Endocrinology evaluation appreciated. continue NPH and NovoLog. dietary education given. Diabetic nurse education given. 2. Hypertension. Continue home lisinopril. 3. History of mild intermittent asthma. Not in acute exacerbation. Continue nebulizer treatments as needed. 4.nausea or vomiting; resolved.possibly diabetic gastroparesis. GI evaluation requested. Continue IVF. patient recently moved from [place]. Patient has medicaid. medications delivered from pharmacy. Advised to follow-up with [facility] [place] clinic upon discharge.
--- NOTE | 2018-04-19 17:47 | PN ---
DATE: 04/19/2018 ENDOCRINOLOGY FOLLOWUP NOTE LOCATION: Room 561. SUBJECTIVE: This is a 22-year-old female with recent uncontrolled type 1 insulin-dependent diabetes, now being followed closely for metabolic management. Her glycemic levels are fluctuating but improved and the glucose levels overnight have ranged from 113 to 222 and 283 mg/dL. Her chemistry showed a BUN of 10, sodium 136, potassium 3.7, chloride 102, CO2 of 27, glucose 176, and creatinine 0.4. So, at this time, we will modify once again her basal and bolus insulin regimen and increase the regular insulin to 14 units subcu t.i.d. before meals to start tomorrow morning as ordered. We will obtain serial chemistries and supplement accordingly as needed. We will also continue the low-dose correction scale using regular insulin as ordered. Moreover, we will continue the same basal insulin given as NPH at 30 units subcu at bedtime daily as given. We will follow. Leny Mckinnon MD
[2018-04-20] MEDS ORDERED: Insulin Regular 1 UNITS/0.01 ML ML SC SCH (07:30)
== END 2018-04-19 17:45 | disposition home or self-care (01) | DRG 295 ==
LOC: ED 00:54 → ERH 04:49 → 5RNO 06:31 → OBSVTOIN 04-16 14:40
PROVIDERS: ADMIT Internal Medicine; ATTEND Internal Medicine
PROC: 3E0F7GC Introduction of Other Therapeutic Substance into Respiratory Tract, Via Natural or Artificial Opening (ICD-10-PCS; principal; 2018-04-15)
DX: E10.65 Type 1 diabetes mellitus with hyperglycemia (principal); Z91.14 Patient's other noncompliance with medication regimen; E10.43 Type 1 diabetes mellitus with diabetic autonomic (poly)neuropathy; K31.84 Gastroparesis; I10 Essential (primary) hypertension; R42 Dizziness and giddiness; R51 Headache; J45.20 Mild intermittent asthma, uncomplicated; Z79.4 Long term (current) use of insulin; Z91.19 Patient's noncompliance with other medical treatment and regimen